=== PATIENT | male | born 1970 | race Hispanic/Latino ===

== ENCOUNTER 2019-09-03 15:30 | Emergency (ER) | payer BC, OTHER ==
[2019-09-03] MEDS ORDERED: KETOROLAC TROMETHAMINE 60 MG/2 ML VIAL ONE (16:11)
[2019-09-03] MEDS ORDERED: CEFAZOLIN SODIUM 1 GM VIAL ONE (16:12)
[2019-09-03] MEDS ORDERED: HYDROCODONE/ACETAMINOPHEN 10/325 MG TAB ONE (16:12)
== END 2019-09-03 16:50 | disposition home or self-care (01) ==
LOC: EDH 15:30
DX: S62.502A Fracture of unspecified phalanx of left thumb, initial encounter for closed fracture (principal); X58.XXXA Exposure to other specified factors, initial encounter; Y93.89 Activity, other specified; Y92.89 Other specified places as the place of occurrence of the external cause; Y99.8 Other external cause status
CPT/HCPCS: 29130; 73140; 96372; 99283; J0690; J1885

== ENCOUNTER 2020-10-17 13:03 | Emergency (ER) | payer BC, OTHER, SELFPAY ==
[~2020-10-17] VITALS: Ht 165.1 cm; Wt 77.1 kg
[2020-10-17 13:05] VITALS: BP 126/74
[2020-10-17] MEDS ORDERED: NAPR-1180 PO (13:12)
[2020-10-17 13:20] VITALS: BP 122/70
== END 2020-10-17 13:34 | disposition home or self-care (01) ==
LOC: EDH 13:03
DX: Z04.1 Encounter for examination and observation following transport accident (principal); Z79.899 Other long term (current) drug therapy; V49.49XA Driver injured in collision with other motor vehicles in traffic accident, initial encounter; Y93.89 Activity, other specified; Y92.488 Other paved roadways as the place of occurrence of the external cause; Y99.8 Other external cause status
CPT/HCPCS: 99281

== ENCOUNTER 2022-04-17 14:40 | Emergency (ER) | payer OTHER ==
[~2022-04-17] VITALS: Ht 167.6 cm; Wt 74.8 kg
[~2022-04-17 14:40] MED LIST: NAPR-1180 PO
[2022-04-17] MEDS ORDERED: KETOROLAC 15MG/ML VIAL (15MG/ML) IV ONE (16:00)
[2022-04-17 16:01] LABS: BASOPHILS % (AUTO) 0.4 % (0.0-5.0); EOSINOPHILS % (AUTO) 0.4 % (0.0-8.0); HEMATOCRIT 41.5 % (42-54); LYMPHOCYTES % (AUTO) 20.9 % (21.0-51.0); MEAN CORPUSCULAR HEMOGLOBIN 30.6 pg (27.0-33.0); MEAN CORPUSCULAR HGB CONC 34.5 g/dL (32.0-36.0); MEAN CORPUSCULAR VOLUME 88.7 fL (79-99); MONOCYTES % (AUTO) 11.2 % (3.0-13.0); NEUTROPHILS % (AUTO) 66.7 % (40.0-77.0); PLATELET COUNT (AUTO) 297 K/uL (130-400); RED BLOOD CELL COUNT(AUTO) 4.68 MIL/uL (4.50-6.20); RED CELL DISTRIBUTION WIDTH 12.8 % (11.0-15.5); WHITE BLOOD COUNT (AUTO) 7.3 K/uL (4.8-10.8)
[2022-04-17 16:08] LABS: POTASSIUM 3.5 mmol/L (3.5-5.1)
[2022-04-17 16:15] LABS: ALBUMIN 3.6 g/dL (3.5-5.0); TOTAL PROTEIN, SERUM 7.3 g/dL (6.0-8.3)
[2022-04-17 16:38] VITALS: BP 135/68
[2022-04-17] MEDS ORDERED: CYCL10TA16 PO (16:40)
[2022-04-17] MEDS ORDERED: IBUP-2070 PO (16:40)
== END 2022-04-17 16:55 | disposition home or self-care (01) ==
LOC: EDH 14:40
DX: M54.2 Cervicalgia (principal); M79.661 Pain in right lower leg; M48.061 Spinal stenosis, lumbar region without neurogenic claudication; V43.52XA Car driver injured in collision with other type car in traffic accident, initial encounter; Y93.89 Activity, other specified; Y92.410 Unspecified street and highway as the place of occurrence of the external cause; Y99.8 Other external cause status
CPT/HCPCS: 99285; 70450; 96374; 71045; 80053; 85025; 36415; 72125; 72131; J1885